=== PATIENT | female | born 1950 | race Caucasian/White ===

== ENCOUNTER 2019-04-14 13:21 | Inpatient (IN) | payer MEDICARE ==
[~2019-04-14] VITALS: Ht 165.1 cm; Wt 81.6 kg
[2019-04-14 13:51] LABS: BASO # 0.1 (0.0-0.2); EOS # 0.2 (0.0-0.7); EOS % 1.7 % (0-4.0); GRAN # 6.6 (1.4-6.5); GRAN % 74.3 % (42.2-75.2); LYMPH # 1.4 (1.2-3.4); MEAN CELL VOLUME 73 fl (80.0-100.0); MEAN CORPUSCULAR HGB CONC 29 g/dl (33.0-37.0); MONO # 0.6 (0.1-0.6); MONO % 6.4 % (1.7-9.3); PLATELET COUNT 319 K/mm3 (130-400); RED BLOOD COUNT 3.98 M/mm3 (4.10-5.30); REDCELL DISTRIBUTION WIDTH-CV 18.4 % (11.5-14.5)
[2019-04-14 13:58] LABS: HEMATOCRIT 29.1 % (37.0-47.0); HEMOGLOBIN 8.5 g/dl (12.5-16.0); MEAN CORPUSCULAR HEMOGLOBIN 21 pg (27.0-31.0)
[2019-04-14 14:00] LABS: ALBUMIN 4.1 gm/dL (3.5-5.0); BILIRUBIN,TOTAL 0.6 mg/dL (0.0-1.0); CALCIUM 10.1 mg/dL (8.4-10.2); CREATININE, serum 0.56 (0.52-1.25); POTASSIUM 3.7 mmol/L (3.4-5.0); TOTAL PROTEIN 7.2 gm/dL (6.4-8.2)
[2019-04-14 14:11] LABS: TROPONIN-I 0.025 ng/mL (0.000-0.035)
[2019-04-14 18:10] VITALS: BP 139/72; PULSE 117; TEMP 98.1
--- NOTE | 2019-04-14 18:12 | NUR ---
Patient up to room 310. Admission, med rec and allergies completed. Pt independent in room, A&O. Hospitalist visited with patient. Denies chest pain or dizziness. C/O SOB and WALKER today and the last month or so. Pt on 1.5L NC. 20G RAC INT IV patent w/ no complications. Pt has dry cough, non productive. Denies other needs at this time. Call light within reach.
--- NOTE | 2019-04-14 19:50 | NUR ---
Pt sitting on edge of bed with O2 at 1L/NC. States she is not able to lay down in bed. Will continue to monitor.
[2019-04-14 21:22] VITALS: BP 133/60; PULSE 109; TEMP 98.9
--- NOTE | 2019-04-14 21:50 | NUR ---
Pt resting with HOB elevated to sitting position. Becomes very SOA with any amount of activity. States she has a low back ache, and neck ache with a headache rated 5/10. Tylenol 650mg given. Will continue to monitor.
[2019-04-14 22:02] LABS: COLLECTION METHOD CLEAN CATCH
[2019-04-14 22:09] LABS: MUCOUS Present /lpf; PH 5 (5-8); SQUAMOUS EPITHELIAL 0-2 /hpf; URINE APPEARANCE Clear; URINE BACTERIA None Seen /hpf; URINE BILIRUBIN Negative (NEGATIVE); URINE BLOOD Negative (NEGATIVE); URINE COLOR Straw; URINE GLUCOSE Negative (NEGATIVE); URINE KETONE Negative (NEGATIVE); URINE LEUKOCYTE ESTERASE Negative (NEGATIVE); URINE NITRATE Negative (NEGATIVE); URINE PROTEIN(semi-quant) Negative (NEGATIVE); URINE RBC 0-2 /hpf; URINE UROBILINOGEN Negative (NEGATIVE)
[2019-04-14 23:17] VITALS: BP 126/48; PULSE 109; TEMP 98.7
--- NOTE | 2019-04-15 02:09 | NUR ---
Awake, resting quietly in bed. Request and given an extra pillow. Reports relief from Tylenol. Will continue to monitor.
[2019-04-15 05:30] VITALS: BP 122/55; PULSE 102; TEMP 98.4
[2019-04-15 06:12] LABS: BASO # 0.1 (0.0-0.2); EOS # 0.2 (0.0-0.7); EOS % 3.3 % (0-4.0); GRAN # 4.8 (1.4-6.5); GRAN % 65.5 % (42.2-75.2); LYMPH # 1.5 (1.2-3.4); LYMPH % 20.8 % (20.0-51.0); MEAN CELL VOLUME 73 fl (80.0-100.0); MEAN CORPUSCULAR HGB CONC 29 g/dl (33.0-37.0); MEAN PLATELET VOLUME 10.6 fl (7.4-10.4); MONO # 0.7 (0.1-0.6); PLATELET COUNT 264 K/mm3 (130-400); RED BLOOD COUNT 3.98 M/mm3 (4.10-5.30); REDCELL DISTRIBUTION WIDTH-CV 18.6 % (11.5-14.5); RETIC # 0.11 M/mm3 (0.02-0.16); RETIC % 2.7 % (0.5-3.52)
[2019-04-15 06:24] LABS: CALCIUM 9.2 mg/dL (8.4-10.2); CREATININE, serum 0.49 (0.52-1.25); POTASSIUM 3.9 mmol/L (3.4-5.0)
[2019-04-15 06:33] LABS: HEMATOCRIT 28.9 % (37.0-47.0); HEMOGLOBIN 8.5 g/dl (12.5-16.0); MEAN CORPUSCULAR HEMOGLOBIN 21 pg (27.0-31.0)
--- NOTE | 2019-04-15 07:37 | NUR ---
Report given to SHELBY Blakely. Pt c/o headache. States the Tylenol that was given last night did help and she got some sleep.
[2019-04-15 07:43] VITALS: BP 132/61; PULSE 106; TEMP 98.5
--- NOTE | 2019-04-15 08:42 | NUR ---
Patient assessment complete and charted. Pt sitting in bed watching tv. C/O SOB on exertion and when coughing. Cough is dry and non productive. Pt on 1.5L NC. Pt also c/o "aches all over", "not used to sitting in bed this much". Denies chest pain, dizziness, numbness/tingling, N/V. Morning medication administered per DEC. Pt requested tylenol for aches. RAC INT IV patent w/ no complications. No other needs at this time, call light within reach.
--- NOTE | 2019-04-15 10:38 | NUR ---
Patient lives at home alone in [place], [place] and plans to return home upon discharge. Patient receives family support from her sister, Yessenia, as needed who also lives in [place]. Patient is indpendent with daily living activities and works self-employed at a local [employer]. Patient has no durable medical equipment usage or anticipated needs, she does not have a primary care physician at this time, her pharmacy is [facility] and she does not have advance directives of healthcare completed at this time. No further needs and clinical social worker will follow as needed.
[2019-04-15 11:32] VITALS: BP 128/53; PULSE 94; TEMP 98.1
[2019-04-15 14:22] LABS: FOLATE (FOLIC ACID) 14.8 ng/mL (7.0-31.4)
[2019-04-15 16:10] VITALS: BP 107/48; PULSE 91; TEMP 98
--- NOTE | 2019-04-15 18:27 | NUR ---
Patient has had uneventful day. Family visited earlier in the day. pt has had no new complaints. patient scheduled for heart cath 04/16 morning, consent signed. All questions answered. Denies needs at this time.
--- NOTE | 2019-04-15 19:00 | NUR ---
Pt sitting up in bed visiting with sister in room. Voices no c/o. End of shift report from SHELBY Blakely.
[2019-04-15 19:46] VITALS: BP 118/52; PULSE 87; TEMP 98.6
--- NOTE | 2019-04-15 21:00 | NUR ---
Pt resting in bed. Humidifier placed on pt's O2. Pt was c/o sinus and throat feeling dry. Call light within reach. Will continue to monitor.
[2019-04-15 23:47] VITALS: BP 128/48; PULSE 67; TEMP 97.8
[2019-04-16] VITALS (9 sets, daily range): BP systolic 84–122; BP diastolic 30–63; PULSE 65–83; TEMP 97.7–98.2
--- NOTE | 2019-04-16 00:15 | NUR ---
Pt made NPO for heart cath in AM.
--- NOTE | 2019-04-16 04:11 | NUR ---
BP rechecked after getting a low BP with. BP 93/41 HR 67. Resting very quietly in bed. Denies any c/o discomfort.
[2019-04-16 06:06] LABS: BASO # 0.1 (0.0-0.2); BASO % 1.2 % (0.0-2.0); EOS # 0.3 (0.0-0.7); EOS % 4.1 % (0-4.0); GRAN # 3.4 (1.4-6.5); GRAN % 52.7 % (42.2-75.2); LYMPH % 30.3 % (20.0-51.0); MEAN CELL VOLUME 74 fl (80.0-100.0); MEAN CORPUSCULAR HGB CONC 29 g/dl (33.0-37.0); MEAN PLATELET VOLUME 9.7 fl (7.4-10.4); MONO # 0.7 (0.1-0.6); MONO % 11.2 % (1.7-9.3); PLATELET COUNT 317 K/mm3 (130-400); RED BLOOD COUNT 3.89 M/mm3 (4.10-5.30); REDCELL DISTRIBUTION WIDTH-CV 18.4 % (11.5-14.5)
[2019-04-16 06:10] LABS: HEMATOCRIT 28.6 % (37.0-47.0); HEMOGLOBIN 8.4 g/dl (12.5-16.0); MEAN CORPUSCULAR HEMOGLOBIN 22 pg (27.0-31.0)
[2019-04-16 06:18] LABS: CALCIUM 8.9 mg/dL (8.4-10.2); CREATININE, serum 0.59 (0.52-1.25); POTASSIUM 3.6 mmol/L (3.4-5.0)
--- NOTE | 2019-04-16 07:39 | NUR ---
End of shift report given to SHELBY Blakely. Pt had uneventful shift.
--- NOTE | 2019-04-16 08:28 | NUR ---
patient down for heart cath procedure at this time escorted via bed. Morning medications held. Report taken from SHELBY Sanabria. Per Elly, BP was in the high 80s, she rechecked it and it was low 90s. Rechecked prior to departing for procedure, 111/48.
--- NOTE | 2019-04-16 08:42 | NUR ---
SEE MERGE DOCUMENTATION FOR MEDICATION ADMINISTRATION TIMES AND INTRA/POST PROCEDURE SEDATION ASSESSMENTS.
--- NOTE | 2019-04-16 09:45 | NUR ---
Patient back from heart cath procedure, A&O. VSS, on 1L NC, sats low 90s. This nurse turned O2 to 1.5L NC. Patient gets SOB laying flat. Flat time 1402-4753. Patient instructed to lay flat, informed of post op vital monitoring. Denies pain at this time. Rt femoral site is CDI, soft, no redness, hematoma. Per OR pt dropped to high 80s O2 turned up to 4L NC briefly. Heart cath clean. No other needs at this time. Will monitor.
[2019-04-16] MEDS ORDERED: LASIX 40MG TABL40 MG PO (11:12)
[2019-04-16] MEDS ORDERED: ENTRESTO 24 MG1 EACH PO (11:12)
[2019-04-16] MEDS ORDERED: LOPRESSOR 225 MG/TAB PO (11:12)
[2019-04-16] MEDS ORDERED: FERRO-TIME325 MG PO (11:16)
--- NOTE | 2019-04-16 11:45 | NUR ---
Pt A&O. Patient on flat time for 4 hours, 2 down, 2 to go. patient BP is fluctuating between high 90s SBP and low 100s. BP cuff constantly needing adjusting by this nurse. Patient fidgety and unable to keep arm still. Morning medications were not administered this morning post procedure due to BP fluctuating. Patient c/o back pain, received tylenol PRN and heat pack. Per pt she "never lies flat on her back". Pt on 1L NC sats at 95-96%. Radial and distal pulses strong bilaterally. Rt femoral site is dry and intact with scant drainage. No active bleeding. Site is soft, no hematoma, no pain. Denies other needs at this time.
--- NOTE | 2019-04-16 13:45 | NUR ---
Patient flat time over, site is dry and intact, no active bleeding. Scant drainage from earlier has not increased. Site is soft, nontender, no hematoma. BP still fluctuating. On 1L NC. Pt states back pain has improved some from tylenol and heat pack. Pt stated her stomach felt like "it was in knots" and she felt "gassy". Denies nausea or wanting anything for it. HOB elevated to 30 degrees, pt instructed to call when ready to get up and void. Pt has tolerated liquids well.
--- NOTE | 2019-04-16 15:45 | NUR ---
Pt discharge instructions and education provided and medication reviewed. Pt will waste picker meds at the pharmacy and oxygen has been received with edu from [facility]. Pt IV discontinued tip intact and no infiltration or redness noted. Pt has all belongings and escorted out via wheelchair by aide.
--- NOTE | 2019-04-16 16:00 | NUR ---
Patient requiring Ex Ox prior to discharge. Pt has satted in upper 90s on 1 L. Per RT, O2 drops to high 80s on ambulation, once seated O2 rises. RT walked Pt to determine O2 needs. Hospitalist and SW contacted to inquire about home O2 for discharge.
--- NOTE | 2019-04-16 17:07 | NUR ---
The patient qualified for home oxygen. PARAM met with the patient and patient's daughter to discuss DME options and presented and explained the patient choice form for DME. The patient chose [facility]. PARAM contacted and faxed the patient's oxygen order to Kacey at [facility]. Kacey reports that they will deliver a portable oxygen tank to the patient's room. PARAM updated the patient's nurse and the patient. The patient is to discharge to her daughter's home in [place] today, 04/16. No additional needs at this time.
--- NOTE | 2019-04-16 18:00 | NUR ---
Pt discharge instructions given and meds reviewed. Edu reviewed on CHF diagnosis and fluid restriction. Home oxygen edu provided by [facility] and pt and family deny questions. Pt IV discontinued tip intact no redness or infiltration noted. Pt has all belongings and escorted out by aide via wheelchair.
--- NOTE | 2019-04-16 18:23 | NUR ---
Patient discharged. Charge nurse, Mildred completed discharge paperwork and instructions. All questions answered. O2 delivered. RW IV discontinued with no complications. Patient escorted out via wheelchair by SHELBY Darby.
== END 2019-04-16 18:25 | disposition home or self-care (01) | DRG 286 ==
LOC: COL.ER 13:21 → MEDICAL 16:14
PROVIDERS: Emergency Medicine; Physician Assistant; ADMIT Hospitalist
PROC: 4A023N8 Measurement of Cardiac Sampling and Pressure, Bilateral, Percutaneous Approach (ICD-10-PCS; principal; 2019-04-16)
PROC: B2111ZZ Fluoroscopy of Multiple Coronary Arteries using Low Osmolar Contrast (ICD-10-PCS; 2019-04-16)
DX: I11.0 Hypertensive heart disease with heart failure (principal); J96.01 Acute respiratory failure with hypoxia; I50.21 Acute systolic (congestive) heart failure; D50.9 Iron deficiency anemia, unspecified; I42.9 Cardiomyopathy, unspecified; I27.20 Pulmonary hypertension, unspecified; R00.0 Tachycardia, unspecified; J44.9 Chronic obstructive pulmonary disease, unspecified; Z87.891 Personal history of nicotine dependence
CPT/HCPCS: 99222-AI; 99232-AI; 99239; C1760; C1894; J1644; J1650; J1940; J2250; J3010; J7030; Q9967